=== PATIENT | male | born 1965 | race Two or more races ===

== ENCOUNTER → 2025-08-24 | Outpatient (CLI) | payer MEDICAID, SELFPAY ==
--- NOTE | 2025-08-24 12:00 | XR_ITS ---
Examination: MRI lumbar spine without contrast Date and time of exam: August 24, 2025, 1243 hours INDICATIONS: Lower back pain radiating to both hips and numbness in the feet 23 years Technique: Multiple MRI axial and sagittal sections lumbar spine. Sagittal T2-weighted images, TR 3500, TE 118 T1 weighted transverse sections, TR 688 T8.5, T2-weighted sagittal sections T1 weighted sagittal sections TR 621, TE 30 T2 axial sections, TR 4, 190, TE 84. Findings: Adequate alignment lumbar vertebral bodies No lumbar fracture Moderate to advanced disc narrowing L4-L5, L5-S1 No spondylolisthesis L5-S1 3 mm central right paracentral disc bulge contiguous with the right S1 nerve root L4-L5 4 mm central lumbar disc bulge L3-L4 no disc protrusion L2-3 no disc protrusion L1-L2 no disc protrusion IMPRESSION: Moderate to advanced degenerative disc disease L4-L5, L5-S1 L5-S1 3 mm central right paracentral disc bulge contiguous with the right S1 nerve root L4-L5 4 mm central lumbar disc bulge
== END | disposition home or self-care (01) ==
PROVIDERS: PCP Registered Nurse; Referring Provider Registered Nurse; Visit Provider Registered Nurse
DX: M51.362 Other intervertebral disc degeneration, lumbar region with discogenic back pain and lower extremity pain (principal); M51.370 Other intervertebral disc degeneration, lumbosacral region with discogenic back pain only
CPT/HCPCS: 72148